=== PATIENT | female | born 1970 | race Caucasian/White ===

== ENCOUNTER 2018-06-09 12:03 | Outpatient (REF) | payer MEDICAID, SELFPAY ==
--- NOTE | 2018-06-09 11:00 | PAPFT_PTH ---
PATIENT: Calista Gan LOC: [facility] U#:[id number] AGE/SX: 48/F ROOM: RE06/09/[address]: Ana Dooley : 1970 BED: DIS: 06/09/2018 SPEC #: [id number] RECD: 06/12/18 13:04 STATUS: TASHA REQ #: [id number] MARI: 06/09/18 11:[address]: Ana Dooley DEPT: [facility] Cytology RECD BY: Ambar Lopez ENTERED: 06/12/18 13:04 SP TYPE: PAPFT OTHR DR: Leila Delvalle Tissues: 1 - CX/ENDOCX FOR PAP SMEARS Procedures: PAP THIN PREP/[facility] Screening HPV DNA PROBE Comments: [id number]
== END 2018-06-09 12:23 ==
LOC: NCHCN 12:03
PROVIDERS: PCP Family Medicine; Visit Provider Registered Nurse
DX: Z12.4 Encounter for screening for malignant neoplasm of cervix (principal); Z11.51 Encounter for screening for human papillomavirus (HPV); Z00.00 Encounter for general adult medical examination without abnormal findings
CPT/HCPCS: 88142; 87624

== ENCOUNTER 2022-06-04 16:05 | Outpatient (REF) | payer MEDICAID, SELFPAY ==
[2022-06-04 21:33] LABS: Abs Immature Grans 0.01 10^3/uL (0.0-0.06); Absolute Basophil Count 0.03 10^3/uL (0.0-0.2); Absolute Lymphocyte Count 1.66 10^3/uL (1.2-3.4); Absolute Monocyte Count 0.31 10^3/uL (0.1-0.8); Absolute Neutrophil Count 3.09 10^3/uL (1.2-6.7); Basophils % 0.6; Eosinophils % 1.9; HCT 36.3 % (36.0-46.0); Immature Grans % 0.2; Lymphocytes % 31.9; MCHC 33.1 % (32.0-36.0); MCV 85 fL (80-95); Neutrophils % 59.4; Platelet Count 209 10^3/uL (130-400); RBC 4.29 10^6/uL (3.93-5.22); RDW 13.7 % (11.7-14.6)
[2022-06-04 22:08] LABS: ALT 29 U/L (14-59); AST 27 U/L (15-37); Albumin 3.8 g/dL (3.4-5.0); Alkaline Phosphatase 72 U/L (46-116); Anion Gap 6.8 mmol/L (3-11); BUN 17 mg/dL (7-18); Bilirubin, Total 0.2 mg/dL (0.2-1.0); CO2 29.2 mmol/L (21.0-32.0); CREATININE 0.8 mg/dL (0.55-1.02); Calcium 9.1 mg/dL (8.5-10.1); Calculated LDL 116 mg/dL (<100); Chloride 104 mmol/L (98-107); Cholesterol 203 mg/dL (<200); Estimated GFR 88.05 (mL/min/1.73m2); Glucose 70 mg/dL (74-106); HDL Cholesterol 75 mg/dL (40-60); Potassium 4.1 mmol/L (3.5-5.1); Sodium 140 mmol/L (136-145); Total Protein 7.1 g/dL (6.4-8.2); Triglyceride 60 mg/dL (<150)
[2022-06-04 22:16] LABS: Vitamin D 25 Total 26.7 ng/mL (30-100)
== END 2022-06-04 16:06 | disposition home or self-care (01) ==
LOC: NCHCN 16:05
PROVIDERS: PCP Family Medicine; Visit Provider Family Medicine
DX: R10.9 Unspecified abdominal pain (principal); R14.0 Abdominal distension (gaseous); R79.89 Other specified abnormal findings of blood chemistry; E55.9 Vitamin D deficiency, unspecified
CPT/HCPCS: 80053; 80061; 82306; 85025

== ENCOUNTER 2024-07-17 19:28 | Outpatient (REF) | payer BC, SELFPAY ==
--- NOTE | 2024-07-17 15:00 | PAPFT_PTH ---
PATIENT: Calista Gan LOC: [facility]#:[id number] AGE/SX: 54/F ROOM: RE07/17/[address]: Randi Mooney : 1970 BED: DIS: 07/17/2024 SPEC #: [id number] RECD: 07/18/24 13:23 STATUS: TASHA REQ #: [id number] MARI: 07/17/24 15:[address]: Randi Mooney DEPT: [facility] Cytology RECD BY: Ambar Lopez ENTERED: 07/18/24 13:23 SP TYPE: PAPFT OTHR DR: Leila Delvalle Tissues: 1 - CX/ENDOCX FOR PAP SMEARS Procedures: PAP THIN PREP/[facility] Screening HPV DNA PROBE Comments: [id number] (HPV 16 & 18/45)
== END 2024-07-17 19:29 | disposition home or self-care (01) ==
LOC: NCHCN 19:28
PROVIDERS: PCP Family Medicine; Visit Provider Family Medicine
DX: Z11.51 Encounter for screening for human papillomavirus (HPV) (principal); Z01.419 Encounter for gynecological examination (general) (routine) without abnormal findings
CPT/HCPCS: 88142; 87624